=== PATIENT | female | born 1950 | race Caucasian/White ===

== ENCOUNTER 2017-12-05 13:02 | Outpatient (CLI) | payer OTHER ==
[~2017-12-05 13:02] MED LIST: AMOX1TAB5 PO
== END 2017-12-05 13:03 | disposition home or self-care (01) ==
LOC: SONOGRAMA 13:02
DX: M65.811 Other synovitis and tenosynovitis, right shoulder (principal)

== ENCOUNTER 2017-12-09 11:11 | Outpatient (CLI) | payer OTHER | END 2017-12-09 11:13 | disposition home or self-care (01) | LOC: SONOGRAMA 11:11 | DX: R31.29 Other microscopic hematuria (principal) ==

== ENCOUNTER 2021-04-26 08:00 | Outpatient (CLI) | payer OTHER | END 2021-04-26 08:30 | disposition home or self-care (01) | LOC: PPH VACUNA 08:00 | DX: Z23 Encounter for immunization (principal) ==

== ENCOUNTER 2021-11-20 08:00 | Outpatient (CLI) | payer OTHER | END 2021-11-20 08:30 | disposition home or self-care (01) | LOC: PPH VACUNA 08:00 | PROVIDERS: ATTEND Emergency Medicine Pediatric Emergency Medicine | DX: Z23 Encounter for immunization (principal) ==